=== PATIENT | male | born 1980 | race American Indian/Alaskan Native ===

== ENCOUNTER 2021-12-11 10:00 | Emergency (ER) | payer SELFPAY ==
--- NOTE | 2021-12-11 11:02 | Emergency Department Report ---
ED ENT HPI - General Chief complaint: Dental/Oral Stated complaint: SWOLLEN GLANDS Time Seen by Provider: 12/11/21 10:30 Source: patient Mode of arrival: Ambulatory Limitations: No Limitations - History of Present Illness Initial comments: 41-year-old -[place] male presents to the emergency room for 2-day history of swelling to the right lower floor of his mouth. Patient states he came in earlier that day about 3 AM but got hungry and decided to leave. Patient returns back to be evaluated. He denies any fever or chills. He states that the swelling is under his right tongue and now it seems to travel down his right side of throat. Patient denies any trouble swallowing. He states that it is painful to. Has no past medical history currently takes no meds on a daily basis. MD complaint: sore throat Onset/Timin -: days(s) Location: other (Right lower floor mild) Quality: aching, sharp Consistency: constant Improves with: none Worsens with: swallowing Associated Symptoms: sore throat. denies: fever, cough, gum swelling, toothache - Related Data Previous Rx's Medication Instructions Recorded Last Taken Type Amoxicillin/K Clav Tab [Augmentin 1 tab PO Q12HR 10 Days #20 tab 12/11/21 Unknown Rx 875 mg] Ibuprofen [Motrin 600 MG tab] 600 mg PO Q8H PRN #21 tablet 12/11/21 Unknown Rx traMADoL [Ultram 50 MG tab] 50 mg PO Q6HR PRN #12 tablet 12/11/21 Unknown Rx Allergies Allergy/AdvReac Type Severity Reaction Status Date / Time No Known Allergies Allergy Unverified 12/11/21 10:04 ED Dental HPI - General Chief complaint: Dental/Oral Stated complaint: SWOLLEN GLANDS Time Seen by Provider: 12/11/21 10:30 Source: patient Mode of arrival: Ambulatory Limitations: No Limitations - Related Data Previous Rx's Medication Instructions Recorded Last Taken Type Amoxicillin/K Clav Tab [Augmentin 1 tab PO Q12HR 10 Days #20 tab 12/11/21 Unknown Rx 875 mg] Ibuprofen [Motrin 600 MG tab] 600 mg PO Q8H PRN #21 tablet 12/11/21 Unknown Rx traMADoL [Ultram 50 MG tab] 50 mg PO Q6HR PRN #12 tablet 12/11/21 Unknown Rx Allergies Allergy/AdvReac Type Severity Reaction Status Date / Time No Known Allergies Allergy Unverified 12/11/21 10:04 ED Review of Systems ROS: Stated complaint: SWOLLEN GLANDS Other details as noted in HPI Comment: All other systems reviewed and negative ED Past Medical Hx - Medications Home Medications: Home Medications Medication Instructions Recorded Confirmed Last Taken Type Amoxicillin/K Clav Tab [Augmentin 1 tab PO Q12HR 10 Days #20 tab 12/11/21 Unknown Rx 875 mg] Ibuprofen [Motrin 600 MG tab] 600 mg PO Q8H PRN #21 tablet 12/11/21 Unknown Rx traMADoL [Ultram 50 MG tab] 50 mg PO Q6HR PRN #12 tablet 12/11/21 Unknown Rx ED Physical Exam - General Limitations: No Limitations General appearance: alert, in no apparent distress - Head Head exam: Present: atraumatic, normocephalic - Eye Eye exam: Present: normal appearance - ENT ENT exam: Present: mucous membranes moist, other (Swelling to the right floor of mouth) - Neck Neck exam: Present: tenderness, full ROM, lymphadenopathy - Respiratory Respiratory exam: Present: normal lung sounds bilaterally. Absent: respiratory distress, accessory muscle use - Cardiovascular Cardiovascular Exam: Present: regular rate - Extremities Exam Extremities exam: Present: normal inspection - Back Exam Back exam: Present: normal inspection - Neurological Exam Neurological exam: Present: alert, oriented X3, normal gait - Psychiatric Psychiatric exam: Present: normal affect, normal mood - Skin Skin exam: Present: warm, dry, intact, normal color. Absent: rash ED Course Vital Signs 12/11/21 12/11/21 10:04 11:27 Temperature 98.4 F 98.0 F Pulse Rate 91 H 86 Respiratory 16 16 Rate Blood Pressure 140/93 148/88 [Right] O2 Sat by Pulse 97 97 Oximetry ED Medical Decision Making - Medical Decision Making 41-year-old -[place] male presents to the emergency room for 2-day history of swelling to the right lower floor of his mouth. Patient states he came in earlier that day about 3 AM but got hungry and decided to leave. Patient returns back to be evaluated. He denies any fever or chills. He states that the swelling is under his right tongue and now it seems to travel down his right side of throat. Patient denies any trouble swallowing. He states that it is painful to. Has no past medical history currently takes no meds on a daily basis. Discussed with patient this appears to be Sialadenitis patient is placed on Augmentin instructed to suck on roc follow-up with her ear nose and throat provider. Tylenol ibuprofen and or tramadol for pain management. Critical care attestation.: If time is entered above; I have spent that time in minutes in the direct care of this critically ill patient, excluding procedure time. ED Disposition Clinical Impression: Acute bacterial sialadenitis Disposition: HOME / SELF CARE / HOMELESS Is pt being admited?: No Does the pt Need Aspirin: No Condition: Stable Instructions: Salivary Gland Infection Additional Instructions: Complete antibiotics as prescribed. Pain medication as needed. Increase your fluid intake. Highly recommend to sucking on lemon as that will help with a salivary gland stone that is blocking your duct. 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 Return back to the emergency room if you have any trouble breathing or not able to hold your saliva. Prescriptions: Amoxicillin/K Clav Tab [Augmentin 875 mg] 1 tab PO Q12HR 10 Days #20 tab Ibuprofen [Motrin 600 MG tab] 600 mg PO Q8H PRN #21 tablet PRN Reason: Pain traMADoL [Ultram 50 MG tab] 50 mg PO Q6HR PRN #12 tablet PRN Reason: Pain Referrals: EARL GARDNER MD [Referring] - 3-5 Days Forms: Work/School Release Form(ED) Time of Disposition: 11:02
[2021-12-11 11:29] VITALS: BP 148/88
== END 2021-12-11 11:29 | disposition home or self-care (01) ==
LOC: ED 10:00
DX: K11.21 Acute sialoadenitis (principal)
CPT/HCPCS: 99282